=== PATIENT | female | born 1990 | race American Indian/Alaskan Native ===

== ENCOUNTER 2020-06-02 14:57 | Emergency (ER) | payer MEDICAID ==
[2020-06-02 15:31] VITALS: BP 126/78
--- NOTE | 2020-06-02 16:33 | Event Note ---
ED Screening Note ED Screening Note: 8 weeks +vaginal bleeding with clots states she is changing every 3 hours OB: my mobile architect mild cramping no fever no v/d no dysuria PMHx none no allergies to meds LNMP: early april /P:6/A:1 This initial assessment/diagnostic orders/clinical plan/treatment(s) is/are subject to change based on patients health status, clinical progression and re- assessment by fellow clinical providers in the ED. Further treatment and workup at subsequent clinical providers discretion. Patient/guardian urged not to elope from the ED as their condition may be serious if not clinically assessed and managed. Initial orders include: labs, UA, US
[2020-06-02 17:34] LABS: Basophils % (Auto) 0.2 % (0.0-1.8); Eosinophils # (Auto) 0.1 K/mm3 (0.0-0.4); Eosinophils % (Auto) 1.3 % (0.0-4.3); Hematocrit 39.7 % (30.3-42.9); Hemoglobin 12.9 gm/dl (10.1-14.3); Lymphocytes # (Auto) 1.8 K/mm3 (1.2-5.4); Lymphocytes % (Auto) 25.5 % (13.4-35.0); Mean Corpuscular HGB Conc 33 % (30-34); Mean Corpuscular Volume 87 fl (79-97); Monocytes # (Auto) 0.5 K/mm3 (0.0-0.8); Monocytes % (Auto) 6.6 % (0.0-7.3); Platelet Count 203 K/mm3 (140-440); Red Blood Count 4.55 M/mm3 (3.65-5.03); Red Cell Distribution Width 14.3 % (13.2-15.2)
[2020-06-02 17:40] LABS: Blood Urea Nitrogen 6 mg/dL (7-17); Calcium 9.5 mg/dL (8.4-10.2); Hemolysis Index 4
[2020-06-02 17:41] LABS: BUN/Creatinine Ratio 10
[2020-06-02 18:49] LABS: Bilirubin,Urine NEG (Negative); Blood,Urine LG (Negative); Color,Urine Yellow (Yellow); Mucus,Urine FEW /HPF; Protein,Urine <15 mg/dL mg/dL (Negative)
--- NOTE | 2020-06-02 19:16 | Ultrasound Report ---
ULTRASOUND OBSTETRIC INDICATION / CLINICAL INFORMATION: , bleeding. TECHNIQUE: Transabdominal. COMPARISON: None available. FINDINGS: Thickened endometrial stripe measuring 1.5 cm containing small amount of fluid/blood in cervix Gestational sac: None visualized EMBRYO/FETUS: None visualized ADNEXA: Right ovary within normal limits. 1.3 cm left ovarian follicular cyst FREE FLUID: None. ADDITIONAL FINDINGS: None. IMPRESSION: 1. No IUP. 2. Thickened heterogeneous endometrial stripe with fluid/blood in cervical canal likely secondary to recent miscarriage Signer Name: David Welch MD Signed: 06/02/2020 7:11 PM Workstation Name: [id number]
--- NOTE | 2020-06-02 19:40 | Emergency Department Report ---
ED HPI - General Chief complaint: Vaginal Bleeding Stated complaint: 8 WEEKS 1 DAY MISCARRYING Time Seen by Provider: 06/02/20 16:30 Source: patient Mode of arrival: Ambulatory Limitations: No Limitations - History of Present Illness Initial comments: pt is a 29 yo female who presents to the ED stating she is 8 weeks and having vaginal bleeding with clots. states she is changing every 3 hours. she states she did pass one large clot. she states the bleeding has improved significantly. OB: my obstetrical tech (+) mild lower cramping no fever no v/d no dysuria no abd vaginal discharge no back pain PMHx none no allergies to meds LNMP 04/06/2020 /P:6/A:1 - Related Data Previous Rx's Medication Instructions Recorded Last Taken Type Acetaminophen [Non-Aspirin Extra 1,000 mg PO Q6H PRN #30 tablet 01/17/20 Unknown Rx Strength] Ondansetron [Zofran Odt] 4 mg PO Q8HR PRN #12 tab.rapdis 01/17/20 Unknown Rx Allergies Allergy/AdvReac Type Severity Reaction Status Date / Time No Known Allergies Allergy Verified 06/02/20 15:29 ED Review of Systems ROS: Stated complaint: 8 WEEKS 1 DAY MISCARRYING Other details as noted in HPI ED Past Medical Hx - Past Medical History Previous Medical History?: No - Surgical History Past Surgical History?: Yes Additional Surgical History: HIP SURGERY - Social History Smoking Status: Never Smoker Substance Use Type: None - Medications Home Medications: Home Medications Medication Instructions Recorded Confirmed Last Taken Type Acetaminophen [Non-Aspirin Extra 1,000 mg PO Q6H PRN #30 tablet 01/17/20 Unknown Rx Strength] Ondansetron [Zofran Odt] 4 mg PO Q8HR PRN #12 tab.rapdis 01/17/20 Unknown Rx ED Physical Exam - General Limitations: No Limitations ED Course Vital Signs 06/02/20 15:30 Temperature 98.0 F Pulse Rate 81 Respiratory 16 Rate Blood Pressure 126/78 O2 Sat by Pulse 99 Oximetry ED Medical Decision Making - Lab Data Result diagrams: 06/02/20 17:07 06/02/20 17:07 Lab Results 06/02/20 06/02/20 06/02/20 Range/Units 17:07 17:07 17:07 WBC 7.2 (4.5-11.0) K/mm3 RBC 4.55 (3.65-5.03) M/mm3 Hgb 12.9 (10.1-14.3) gm/dl Hct 39.7 (30.3-42.9) % MCV 87 (79-97) fl MCH 28 (28-32) pg MCHC 33 (30-34) % RDW 14.3 (13.2-15.2) % Plt Count 203 (140-440) K/mm3 Lymph % (Auto) 25.5 (13.4-35.0) % Greenlee % (Auto) 6.6 (0.0-7.3) % Eos % (Auto) 1.3 (0.0-4.3) % Baso % (Auto) 0.2 (0.0-1.8) % Lymph # (Auto) 1.8 (1.2-5.4) K/mm3 Greenlee # (Auto) 0.5 (0.0-0.8) K/mm3 Eos # (Auto) 0.1 (0.0-0.4) K/mm3 Baso # (Auto) 0.0 (0.0-0.1) K/mm3 Seg Neutrophils % 66.4 (40.0-70.0) % Seg Neutrophils # 4.8 (1.8-7.7) K/mm3 Sodium 137 (137-145) mmol/L Potassium 4.1 (3.6-5.0) mmol/L Chloride 102.4 (98-107) mmol/L Carbon Dioxide 24 (22-30) mmol/L Anion Gap 15 mmol/L BUN 6 L (7-17) mg/dL Creatinine 0.6 (0.6-1.2) mg/dL Estimated GFR > 60 ml/min BUN/Creatinine Ratio 10 % Glucose 85 (65-100) mg/dL Calcium 9.5 (8.4-10.2) mg/dL HCG, Quant 861.2 H (0-4) mIU/mL Urine Color (Yellow) Urine Turbidity (Clear) Urine pH (5.0-7.0) Ur Specific Itmann (1.003-1.030) Urine Protein (Negative) mg/dL Urine Glucose (UA) (Negative) mg/dL Urine Ketones (Negative) mg/dL Urine Blood (Negative) Urine Nitrite (Negative) Urine Bilirubin (Negative) Urine Urobilinogen (<2.0) mg/dL Ur Leukocyte Esterase (Negative) Urine WBC (Auto) (0.0-6.0) /HPF Urine RBC (Auto) (0.0-6.0) /HPF U Epithel Cells (Auto) (0-13.0) /HPF Urine Mucus /HPF Blood Type 06/02/20 06/02/20 Range/Units 17:07 18:26 WBC (4.5-11.0) K/mm3 RBC (3.65-5.03) M/mm3 Hgb (10.1-14.3) gm/dl Hct (30.3-42.9) % MCV (79-97) fl MCH (28-32) pg MCHC (30-34) % RDW (13.2-15.2) % Plt Count (140-440) K/mm3 Lymph % (Auto) (13.4-35.0) % Greenlee % (Auto) (0.0-7.3) % Eos % (Auto) (0.0-4.3) % Baso % (Auto) (0.0-1.8) % Lymph # (Auto) (1.2-5.4) K/mm3 Greenlee # (Auto) (0.0-0.8) K/mm3 Eos # (Auto) (0.0-0.4) K/mm3 Baso # (Auto) (0.0-0.1) K/mm3 Seg Neutrophils % (40.0-70.0) % Seg Neutrophils # (1.8-7.7) K/mm3 Sodium (137-145) mmol/L Potassium (3.6-5.0) mmol/L Chloride (98-107) mmol/L Carbon Dioxide (22-30) mmol/L Anion Gap mmol/L BUN (7-17) mg/dL Creatinine (0.6-1.2) mg/dL Estimated GFR ml/min BUN/Creatinine Ratio % Glucose (65-100) mg/dL Calcium (8.4-10.2) mg/dL HCG, Quant (0-4) mIU/mL Urine Color Yellow (Yellow) Urine Turbidity Clear (Clear) Urine pH 5.0 (5.0-7.0) Ur Specific Itmann 1.021 (1.003-1.030) Urine Protein <15 mg/dl (Negative) mg/dL Urine Glucose (UA) Neg (Negative) mg/dL Urine Ketones Neg (Negative) mg/dL Urine Blood Lg (Negative) Urine Nitrite Neg (Negative) Urine Bilirubin Neg (Negative) Urine Urobilinogen 4.0 (<2.0) mg/dL Ur Leukocyte Esterase Neg (Negative) Urine WBC (Auto) 4.0 (0.0-6.0) /HPF Urine RBC (Auto) 111.0 (0.0-6.0) /HPF U Epithel Cells (Auto) 2.0 (0-13.0) /HPF Urine Mucus Few /HPF Blood Type A POSITIVE - Radiology Data Radiology results: report reviewed [facility] [address] [id number] Ultrasound Report Signed Patient: DONAL MILLER MR#: [id number] : 1990 Acct:[id number] Age/Sex: 29 / F ADM Date: 06/02/20 Loc: ED Attending Dr: Ordering Physician: ESVIN MCWILLIAMS Date of Service: 06/02/20 Procedure(s): US OB transvaginal Accession Number(s): [id number] cc: ESVIN MCWILLIAMS ULTRASOUND OBSTETRIC INDICATION / CLINICAL INFORMATION: , bleeding. TECHNIQUE: Transabdominal. COMPARISON: None available. FINDINGS: Thickened endometrial stripe measuring 1.5 cm containing small amount of fluid/blood in cervix Gestational sac: None visualized EMBRYO/FETUS: None visualized ADNEXA: Right ovary within normal limits. 1.3 cm left ovarian follicular cyst FREE FLUID: None. ADDITIONAL FINDINGS: None. IMPRESSION: 1. No IUP. 2. Thickened heterogeneous endometrial stripe with fluid/blood in cervical canal likely secondary to recent miscarriage Signer Name: David Welch MD Signed: 06/02/2020 7:11 PM Workstation Name: [id number] Transcribed By: TL Dictated By: David Welch MD Electronically Authenticated By: David Welch MD Signed Date/Time: 06/02/201910 DD/ 08 TD/TT: - Medical Decision Making pt is a 29 yo female who presents to the ED stating she is 8 weeks and having vaginal bleeding with clots. states she is changing every 3 hours. she states she did pass one large clot. she states the bleeding has improved significantly. OB: my obstetrical tech (+) mild lower cramping no fever no v/d no dysuria no abd vaginal discharge no back pain PMHx none no allergies to meds LNMP 04/06/2020 /P:6/A:1 Vitals are normal. No abdominal tenderness on exam, no guarding, rebound, rigidity, normal bowel sounds, no peritoneal signs. Labs are stable. hCG quant is 861. Patient is Rh+. OB ultrasound: 1. No IUP. 2. Thickened heterogeneous endometrial stripe with fluid/blood in cervical canal likely secondary to recent miscarriage. Discussed all results with patient and answered questions. Advised patient that this appears most likely consistent with a spontaneous . advised pt May take Tylenol as needed for discomfort. Increase your water intake. Please follow-up with your FIELD ACCOUNT DIRECTOR in the next 2 to 3 days. You need to have a repeat hCG quant in 2 days. Today 06/02/2020 your hCG quant is 861. Return to emergency room for any new or worsening symptoms. Critical care attestation.: If time is entered above; I have spent that time in minutes in the direct care of this critically ill patient, excluding procedure time. ED Disposition Clinical Impression: Spontaneous Disposition: DC-01 TO HOME OR SELFCARE Is pt being admited?: No Does the pt Need Aspirin: No Condition: Stable Instructions: Miscarriage, [id number] Additional Instructions: May take Tylenol as needed for discomfort. Increase your water intake. Please follow-up with your FIELD ACCOUNT DIRECTOR in the next 2 to 3 days. You need to have a repeat hCG quant in 2 days. Today 06/02/2020 your hCG quant is 861. Return to emergency room for any new or worsening symptoms. Referrals: PRIMARY CARE, [Primary Care Provider] - 2-3 Days [facility] [Provider Group] - 2-3 Days Forms: Accompanied Note Time of Disposition: 19:39 Print Language: KAZAKH
== END 2020-06-02 19:45 | disposition home or self-care (01) ==
LOC: ED 14:57
DX: O03.9 Complete or unspecified spontaneous abortion without complication (principal); Z3A.08 8 weeks gestation of pregnancy; Z79.899 Other long term (current) drug therapy
CPT/HCPCS: 36415; 76801; 76817; 80048; 81001; 84702; 85025; 86900; 86901

== ENCOUNTER 2021-03-16 10:54 | Inpatient (IN) | payer MEDICAID ==
[~2021-03-16 10:54] MED LIST: SODIUM CHLORIDE 0.9% IRR 1,500 ML BOTTLE IR ONE; WATER FOR IRRIG STERILE 1,500 ML BOTTLE IR ONE; ceFAZolin/STERILE WATER 2 GM/20 ML SYRINGE IV ONE
[2021-03-16] MEDS ORDERED: LACTATED RINGERS 500 ML IV ONE (13:00)
--- NOTE | 2021-03-16 14:13 | Ultrasound Report ---
ULTRASOUND OBSTETRIC LIMITED ULTRASOUND BIOPHYSICAL PROFILE INDICATION / CLINICAL INFORMATION: [facility], Twin gestation. Baby A Clinical Gestational Age (GA) in weeks, days: 32 weeks 6 days TECHNIQUE: Transabdominal. COMPARISON: None available. FINDINGS: BREATHING MOVEMENT = 0 GROSS BODY MOVEMENT = 2 TONE = 2 QUALITATIVE AMNIOTIC FLUID VOLUME = 2 TOTAL BIOPHYSICAL SCORE = 6/8 HEART RATE (beats per minute): 138 PRESENTATION: Breech. ADDITIONAL FINDINGS: None. IMPRESSION: 1. Biophysical Score = 6/8 Signer Name: Atul Monk MD Signed: 03/16/2021 2:08 PM Workstation Name: [employer]
--- NOTE | 2021-03-16 14:15 | Ultrasound Report ---
ULTRASOUND OBSTETRIC LIMITED ULTRASOUND BIOPHYSICAL PROFILE INDICATION / CLINICAL INFORMATION: [facility] TWINS. Baby B Clinical Gestational Age (GA) in weeks, days: 32 weeks 6 days TECHNIQUE: Transabdominal. COMPARISON: None available. FINDINGS: BREATHING MOVEMENT = 2 GROSS BODY MOVEMENT = 2 TONE = 2 QUALITATIVE AMNIOTIC FLUID VOLUME = 2 TOTAL BIOPHYSICAL SCORE = 8/8 HEART RATE (beats per minute): 150 ADDITIONAL FINDINGS: None. IMPRESSION: 1. Biophysical Score = 8/8 Signer Name: Atul Monk MD Signed: 03/16/2021 2:10 PM Workstation Name: [email or web address]
[2021-03-16] MEDS ORDERED: TERBUTALINE 1 MG/1 ML INJ SUB-Q ONE ×2 (14:51→17:20)
[2021-03-16] MEDS ORDERED: LACTATED RINGERS 1,000 ML ONE (15:54)
[2021-03-16 16:50] LABS: Hematocrit 36.7 % (30.3-42.9); Hemoglobin 12.4 gm/dl (10.1-14.3); Mean Corpuscular HGB Conc 34 % (30-34); Mean Corpuscular Volume 87 fl (79-97); Platelet Count 147 K/mm3 (140-440); Red Blood Count 4.24 M/mm3 (3.65-5.03); Red Cell Distribution Width 13.4 % (13.2-15.2)
[2021-03-16] MEDS ORDERED: diphenhydrAMINE 25 MG CAP PO PRN (17:34)
[2021-03-16] MEDS ORDERED: ALUM-MAG HYDROXIDE-SIMETHICONE 200-200-20MG/5ML ORAL LIQD 30 ML PO PRN (17:34)
[2021-03-16] MEDS ORDERED: ONDANSETRON 4 MG/2 ML INJ IV PRN (17:34)
[2021-03-16] MEDS ORDERED: DOCUSATE SODIUM 100 MG CAP PO PRN (17:34)
[2021-03-16] MEDS ORDERED: MAGNESIUM HYDROXIDE (MOM) ORAL LIQD UDC PO PRN (17:34)
[2021-03-16] MEDS ORDERED: ACETAMINOPHEN 325 MG TAB PO PRN (17:34)
[2021-03-16] MEDS ORDERED: LACTATED RINGERS 1,000 ML IV SCH (17:45)
--- NOTE | 2021-03-16 17:45 | History and Physical Report ---
History of Present Illness Date of examination: 03/16/21 Date of admission: 03/16/2021 Chief complaint: Abnormal testing. History of present illness: Pt is a 30 y.o. that presented to her office visit. Her NST in the office was non reactive and also had some difficulty with tracing unable baby B. She was sent to triage for an evaluation. Upon admission to triage a BPP was obtained and found to be 6/8 for Twin A. Pt was then admitted to observation with repeat BPP in the AM on 03/17/2021. EDC Confirmation: 05/05/2021 Gestational Age: 32.6 weeks on admission Past History : 9 Term Births: 3 Premature Births: 3 Living Children: 6 Para: 6 Mult. Births: 0 Prev : 0 Prev. attempt? none Aborta: 2 Elect. Ab: 0 Spont. Ab: 2 Ectopics: 0 # 1 Delivery date: 12/10/2008 Weeks Gestation: 39 labor: no Delivery type: Anesthesia type: epidural Delivery location: [place] Sex: Male weight: 6#14 Name: Leighton # 2 Delivery date: 09/30/2010 Weeks Gestation: 38 Delivery type: Anesthesia type: epidural Delivery location: [place] [facility] Sex: Male weight: 7#1 Name: Izabel # 3 Delivery date: 09/22/2012 Weeks Gestation: 36 labor: yes Delivery type: Anesthesia type: epidural Delivery location: [place] Sex: Female weight: 6#6 Name: Navya # 4 Delivery date: 11/26/2014 Weeks Gestation: 35.3 labor: yes Delivery type: Anesthesia type: epidural Delivery location: [place] [facility] Sex: Female weight: 5#0 Name: Janusz # 5 Delivery date: 02/08/2016 Weeks Gestation: 36 Delivery type: Anesthesia type: epidural Delivery location: [place] [facility] Sex: Male weight: 6#5 Name: Vinicio # 6 Delivery date: 12/02/2017 Weeks Gestation: 39.6 labor: no Delivery type: Hours of labor: 2 Anesthesia type: epidural Delivery location: [place] Sex: Female weight: 6#13 Name: Rocio # 7 Delivery date: 01/2020 Delivery type: SAB # 8 Delivery date: 05/2020 Weeks Gestation: 8 Delivery type: SAB Risk Factors: Smoked Tobacco Use: Never smoker Smokeless Tobacco Use: Never Alcohol use: no Exercise: yes PAP Smear History: Date of Last PAP Smear: 05/11/2020 Results: Normal Past Medical History: Reviewed history from 01/19/2020 and no changes required: Abnormal Pap Smear 2017 colposcopy Anemia Bladder Infections Bipolar Disease- not takin any medication Blood Transfusion Depression- denies current symptoms or suicidal ideation Headaches(Migraines) Ovarian Cysts UTI's Recurrent Past Surgical History: Reviewed history from 05/11/2020 and no changes required: positive, femus ORIF Past Medical History Anesthesia Complications: negative Anemia: negative Autoimmune Disorder: negative Bleeding Disorder: negative Blood Transfusions: positive, 2016 following excessive bleeding from [facility] for 3 months Breast Disease: negative Diabetes: negative Heart Disease: negative Hypertension: negative Hepatitis/Liver Disease: negative Kidney Disease/UTI: negative Neurologic/Epilepsy/Migraines: negative Phlebitis/Varicosities: negative Psychiatric: positive, Bipolar depression Pulmonary Disease/Asthma: negative Thyroid Disease: negative Hospitalizations: negative Surgery (Non-vice president of news): positive, femus ORIF Abnormal PAP: positive MARIA G Exposure: negative Infertility: negative Uterine Anomaly: negative Uterine Surgery (not C/S): negative Other Gynecologic Problems: positive, PID 2016 Social Hx: Patient is Smoking History: Patient has never smoked. Genetic History Congenital Heart Defect: Mom: no Dad: unknown Pratibha Disease: Mom: no Dad: unknown Thalassemia Mom: no Dad: unknown Neural Tube Defect Mom: no Dad: unknown Down's Syndrome Mom: no Dad: unknown Giuseppe-Sachs Mom: no Dad: unknown Sickle Cell Disease/Trait Mom: no Dad: unknown Hemophilia Mom: no Dad: unknown Muscular Dystrophy Mom: no Dad: unknown Cystic Fibrosis Mom: no Dad: unknown Agustín Chorea Mom: no Dad: unknown Mental Retardation Mom: no Dad: unknown Fragile X Mom: no Dad: unknown Other Genetic/Chromosomal Disorder Mom: no Dad: unknown Child w/other defect Mom: no Dad: unknown Enviromental Exposures Xray Exposure: no Medication, drug, or alcohol use since LMP: no Chemical/Other Exposure: no Exposure to Cat Liter: no Hx of Parvovirus (Fifth Disease): no Occupational Exposure to Children: none Current Allergies: No known allergies Past History Past Medical History: seizure (Headaches), hematologic disorders (Anemia), other (Bi-polar, depression, frequent UTI's, bladder infections) Past Surgical History: other (ORIF, ) FREELANCE DIRECTOR History: abnormal PAP smear, other (Ovarian cysts, PID) Family/Genetic History: none Social history: no significant social history - Obstetrical History Expected Date of Delivery: 05/05/21 Actual Gestation: 32 Week(s) 6 Day(s) : 9 Para: 6 Hx # Term Pregnancies: 3 Number of Pregnancies: 3 Spontaneous Abortions: 2 Induced : 0 Number of Living Children: 6 Medications and Allergies Allergies Allergy/AdvReac Type Severity Reaction Status Date / Time No Known Allergies Allergy Verified 06/02/20 15:29 Home Medications Medication Instructions Recorded Confirmed Last Taken Type Acetaminophen [Non-Aspirin Extra 1,000 mg PO Q6H PRN #30 tablet 01/17/20 Unknown Rx Strength] Ondansetron [Zofran Odt] 4 mg PO Q8HR PRN #12 tab.rapdis 01/17/20 Unknown Rx Active Meds: Active Medications Acetaminophen (Acetaminophen 325 Mg Tab) 1,000 mg PO Q6H PRN PRN Reason: Pain MILD(1-3)/Fever >100.5/VIRAMONTES Al Hydrox/Mg Hydrox/Simethicone (Alum-Mag Hydroxide-Simethicone [phone]/5ml Oral Liqd 30 Ml) 30 ml PO Q6H PRN PRN Reason: Indigestion Diphenhydramine HCl (Diphenhydramine 25 Mg Cap) 25 mg PO Q6H PRN PRN Reason: Itching Docusate Sodium (Docusate Sodium 100 Mg Cap) 100 mg PO Q12H PRN PRN Reason: Constipation Lactated Ringer's (Lactated Ringers) 1,000 mls @ 125 mls/hr IV DIRECT DAX Magnesium Hydroxide (Magnesium Hydroxide (Mom) Oral Liqd Udc) 30 ml PO QHS PRN PRN Reason: Laxative Effect Multivitamins/Iron/Calcium ( Kiv05-Ou Fumarate-Folic Acid Vit Tab) 1 each PO QDAY DAX Ondansetron HCl (Ondansetron 4 Mg/2 Ml Inj) 4 mg IV Q6H PRN PRN Reason: Nausea And Vomiting Review of Systems All systems: negative - Vital Signs Vital signs: Vital Signs Pulse Pulse Ox 55 L 80 L 03/16/21 12:17 10/06/21 12:17 Temp Pulse Resp BP Pulse Ox 98.5 F 101 H 110/56 99 03/16/21 12:39 03/16/21 17:37 03/16/21 15:40 03/16/21 17:37 Pt denies vaginal bleeding, LOF. Having some contractions. Was given fluids and terb in triage. - Physical Exam Breasts: Positive: deferred Cardiovascular: Regular rate Lungs: Positive: Normal air movement Abdomen: Positive: normal appearance, soft Genitourinary (Female): Positive: normal external genitalia, normal perenium Vulva: both: normal Uterus: Positive: normal size (For twin gestation. ) Extremities: Positive: normal - Obstetrical FHR: category 1 (X 2 while in triage) Cervical Dilatation: 0.5 Cervical Effacement Percentage: 20 station: -4 Uterine Contraction Pattern: Irregular Uterine Tone Measurement Phase: Resting Uterine Contraction Intensity: Mild Results Result Diagrams: 03/16/21 16:15 All other labs normal. GBS Unknown as patient is on 32.6 weeks gestation. HBsAg Screen Negative Negative *1 RPR Non Reactive Non Reactive *2 Rubella Antibodies, IgG 1.35 index Immune >0.99 *3 Non-immune <0.90 Equivocal 0.90 - 0.99 Immune >0.99 ABO Grouping A *4 Rh Factor Positive *5 Antibody Screen Negative Negative *6 Tests: (2) HB Solu + Rflx [facility] ([id number]) Hemoglobin (Hgb) Solubility Negative Negative *31 Tests: (3) HIV Ag/Ab with Reflex ([id number]) HIV Screen 4th Generation wRfx Non Reactive Non Reactive *32 Tests: (4) HCV Ab w/Rflx to Verification ([id number]) ! HCV Ab <0.1 s/co ratio 0.0-0.9 *33 Tests: (5) Comment: ([id number]) ! Comment: SPR[facility] *34 Non reactive HCV antibody screen is consistent with no HCV infection, unless recent infection is suspected or other evidence exists to indicate HCV infection. Assessment and Plan A: 30 y.o. @ 32.6 weeks, twin gestation. Abnormal testing Twin A BPP 6/8-off for breathing. - Patient Problems (1) Abnormal test Onset Date: ~03/16/21 Current Visit: Yes Status: Acute Plan to address problem: Admit to labor and delivery. Initiate IV. Drawn admission labs. Repeat BPP's on 03/17. (2) with 32 completed weeks gestation Current Visit: Yes Status: Acute Plan to address problem: Monitor twin gestation status through EFM. (3) Twin gestation in third trimester Current Visit: Yes Status: Acute Qualifiers: Multiple gestation type: dichorionic and diamniotic Qualified Code(s): O30.043 - Twin , dichorionic/diamniotic, third trimester Plan to address problem: Continuous EFM.
[2021-03-16] MEDS ORDERED: TERBUTALINE 1 MG/1 ML INJ IVP ONE (17:47)
[2021-03-16] MEDS ORDERED: METOCLOPRAMIDE 10 MG/2 ML INJ ONE (23:18)
[2021-03-16] MEDS ORDERED: OXYTOCIN DRIP 30,000 MILLIUNITS/500 ML BAG IV ONE ×2 (23:18→23:39)
[2021-03-16] MEDS ORDERED: BICITRA ORAL LIQD 30ML ONE (23:18)
[2021-03-16] MEDS ORDERED: FAMOTIDINE 20 MG/2 ML INJ IV ONE (23:18)
[2021-03-16] MEDS ORDERED: ceFAZolin/Water 2 GM/20 ML 2 GM/20 ML SYRINGE IV ONE (23:19)
[2021-03-16] MEDS ORDERED: BICITRA ORAL LIQD 30ML PO ONE (23:36)
--- NOTE | 2021-03-16 23:36 | Anesthesia Day of Surgery ---
Anesthesia Day of Surgery - Day of Surgery Patient Examined: Yes Patient H&P Reviewed: Yes Patient is NPO: Yes
--- NOTE | 2021-03-16 23:36 | Anesthesia Consultation ---
Anesthesia Consult and Med Hx Date of service: 03/16/21 - Airway Anesthetic Teeth Evaluation: Good ROM Head & Neck: Adequate Mental/Hyoid Distance: Adequate Mallampati Class: Class II Intubation Access Assessment: Probably Good - Pulmonary Exam CTA: Yes - Cardiac Exam Cardiac Exam: RRR - Pre-Operative Health Status ASA Pre-Surgery Classification: ASA3 Proposed Anesthetic Plan: Spinal - Pulmonary Hx Asthma: No - Cardiovascular System Hx Hypertension: No - Central Nervous System Hx Seizures: Yes Hx Psychiatric Problems: No - Endocrine Hx Renal Disease: No Hx Hypothyroidism: No Hx Hyperthyroidism: No - Hematic Hx Anemia: Yes Hx Sickle Cell Disease: No - Other Systems Hx Alcohol Use: No Hx Obesity: Yes
[2021-03-16] MEDS ORDERED: METOCLOPRAMIDE 10 MG/2 ML INJ IV NR (23:45)
[2021-03-17] MEDS ORDERED: ceFAZolin/STERILE WATER 2 GM/20 ML SYRINGE IV NR
[2021-03-17] MEDS ORDERED: dexAMETHasone 20 MG/5 ML VIAL ONE (00:12)
[2021-03-17] MEDS ORDERED: LACTATED RINGERS 1,000 ML ONE (00:12)
[2021-03-17] MEDS ORDERED: PHENYLEPHRINE/NS 1,000 MCG/10 ML SYRINGE (OR USE) IV ONE (00:12)
[2021-03-17] MEDS ORDERED: BUPIVACAINE/PF (0.5%) 5 MG/1 ML 30 ML VIAL INFILTRATI ONE (00:12)
[2021-03-17] MEDS ORDERED: ONDANSETRON 4 MG/2 ML INJ ONE (00:12)
[2021-03-17] MEDS ORDERED: ceFAZolin 1 GM VIAL ONE (00:12)
[2021-03-17] MEDS ORDERED: KETOROLAC 30 MG/1 ML INJ ONE (00:14)
[2021-03-17] MEDS ORDERED: ePHEDrine SULFATE 50 MG/1 ML INJ ONE (00:45)
--- NOTE | 2021-03-17 00:50 | Operative Report ---
Operative Report Operative Report: Date of operation: 03/17/2021 Pre-operative diagnosis: 1. Intrauterine at 33 weeks gestational age 2. Twin gestation, diamniotic dichorionic 3. labor 4. BMI 37.8 kg/m 5. Breech presentation twin A Postoperative diagnosis: 1. Intrauterine at 33 weeks gestational age 2. Twin gestation, diamniotic dichorionic 3. labor 4. BMI 37.8 kg/m 5. Transverse presentation twin A, head to maternal left with back posterior 6. Possible placenta abruption Procedure name(s): Primary low transverse uterine incision Surgeon: Preeti Mcclure MD Electric Melt Operator: Kaitlin. Anesthesia: Spine QBL: 710 mL Urine output: 50 mL of clear urine out at the end of the procedure Fluids: 1 bowel mL Findings: Twin A: Liveborn male weight 4 Lbs. 2 oz. Apgars of 6 and 8 at one and 5 minutes. Nuchal cord x1 delivered over the body Twin B: Liveborn male infant weight 4 pounds 0 ounces Apgars 3 and 9 at 1 and 5 minutes Grossly normal uterus tubes and ovaries Indications: Pt is a 30 y.o. that presented to her office visit. Her NST in the office was non reactive and also had some difficulty with tracing Twin B. She was sent to triage for an evaluation. Upon admission to triage a BPP was obtained and found to be 6/8 for Twin A. Pt was then admitted to observation with repeat BPP in the AM on 03/17/2021. At her office visit her cervical exam was closed. During her observational labor and delivery patient complained of contractions. Cervical exam revealed her to be 4 cm. By ultrasound twin A was breech therefore the decision was made to proceed with delivery. Patient complained of urge to push the operating table she was checked and found to be 6 cm dilated. Procedure: Patient was taking to the operating room. Spinal anesthesia was placed. Patient was then prepped and draped in the usual sterile fashion Timeout was performed. Once an appropriate level of anesthesia was noted, a Pfannenstiel incision was made and extended the fascia which was incised and extended lateral direction. The overlying fascia was sharply dissected away from the underlying rectus muscles in the superior inferior direction. The midline was entered bluntly. Bladder blade was placed. Vesicouterine fold was incised with blunt dissection bladder flap was created. A transverse incision was made in the lower uterine segment and extended superolateral direction with finger fractionation. Clear fluid was noted. Infant was delivered from the cephalic position, rotated from transverse.nuchal cord x1 was noted that was released over the body. Spontaneous cry and excellent tone. Mouth and nose bulb suctioned. Cord was doubly clamped and cut was given to the resuscitation team present. Membranes were ruptured on twin B. Clear fluid was noted. Infant was delivered from cephalic position. Spontaneous cry and excellent tone. Mouth and nose were bulb suction. The was given to the resuscitation team present. Placentas were delivered, order was given to send placentas to pathology. Moderate amount of dark blood was noted at delivery of the placentas. The uterus was exteriorized and cleaned of any further placental tissue and products of conception. Uterine incision was approximated using 0 Vicryl in a running interlocking stitch followed by further suture of 0 Vicryl in imbricating fashion. When hemostasis was noted the uterus was allowed back in the pelvic cavity. Pelvis was irrigated with warm normal saline. Once hemostasis was noted the rectus muscles were approximated using 0 Vicryl interrupted simple stitches 3. Once hemostasis was noted the fascia was approximated using 0 Vicryl simple running stitch. The incision was irrigated with warm saline, once hemostasis as noted, the subcuticular adipose tissue was reapproximated using 3-0 Vicryl in a simple running fashion. Skin was approximated using 4-0 Vicryl on a Jonathon needle in a subcuticular manner. Counts were correct at the end of the procedure. Intraoperative x-ray was performed. On preliminary view no evidence of retained surgical instruments, needles or laparotomy sponges. Patient tolerated the procedure well, she was taken to recovery room in stable condition.
--- NOTE | 2021-03-17 01:46 | XRay Report ---
Abdomen single view INDICATION: Abdominal pain IMPRESSION: No radiopaque/metallic needle identified the visualized abdomen and pelvis. Diastases of the pubic symphysis and right SI joint noted. Signer Name: Troy Blanca MD Signed: 03/17/2021 1:42 AM Workstation Name: [id number]
[2021-03-17] MEDS ORDERED: MORPHINE 4 MG/1 ML INJ IV PRN (03:31)
[2021-03-17] MEDS ORDERED: WITCH HAZEL/ GLYCERIN PAD TP PRN (03:31)
[2021-03-17] MEDS ORDERED: SENNOSIDES 8.6 MG TAB PO PRN (03:31)
[2021-03-17] MEDS ORDERED: MORPHINE 2 MG/1 ML INJ IV PRN (03:31)
[2021-03-17] MEDS ORDERED: OXYTOCIN DRIP 30 UNITS/500 ML BAG IV SCH (03:31)
[2021-03-17] MEDS ORDERED: NALOXONE 0.4 MG/1 ML INJ IV PRN (03:31)
[2021-03-17] MEDS ORDERED: ONDANSETRON 4 MG/2 ML INJ IV PRN (03:31)
[2021-03-17] MEDS ORDERED: PROMETHAZINE 25 MG RECT SUPP PR PRN (03:31)
[2021-03-17] MEDS ORDERED: LANOLIN/ZINC/DIMETHICONE (LANSINOH) 7 GM TP PRN (03:31)
[2021-03-17] MEDS ORDERED: SIMETHICONE 80 MG CHEW TAB PO PRN (03:31)
[2021-03-17] MEDS ORDERED: traMADol 50 MG TAB PO PRN (03:31)
[2021-03-17] MEDS ORDERED: D5W/LACTATED RINGERS 1,000 ML IV SCH (03:31)
[2021-03-17] MEDS: ACETAMINOPHEN 500 MG TAB PO SCH ×3 (05:36→19:59)
--- NOTE | 2021-03-17 08:42 | Progress Note ---
Assessment and Plan 30yo female s/p sitting up in bed, no complaints. Dressing dry and intact, lochia scant, fundus firm and midline. VSSAF. H&H ordered for 1300. - Patient Problems (1) delivery delivered Current Visit: Yes Status: Acute Plan to address problem: continue postop pathway Advance diet and activity as tolerated Subjective - Subjective Date of service: 03/17/21 Principal diagnosis: postop day #1 <12hrs s/p c/s Patient reports: pain well controlled : in NICU Objective - Vital Signs Latest vital signs: Vital Signs Temp Pulse Resp BP BP Pulse Ox Pulse Ox 03/17/21 03:20 98.6 F 80 22 105/66 98 98 03/17/21 02:30 97.8 F 79 17 107/56 97 03/17/21 02:15 73 19 93/51 98 03/17/21 02:00 76 17 103/58 99 03/17/21 01:45 83 17 102/48 98 03/17/21 01:40 87 19 96/49 97 03/17/21 01:35 83 20 92/42 97 03/17/21 01:30 97.4 F L 90 19 102/47 96 03/16/21 23:34 96 H 129/71 03/16/21 23:14 98 H 96 03/16/21 23:09 96 H 99 03/16/21 23:04 101 H 100 03/16/21 22:59 103 H 98 03/16/21 22:54 107 H 98 03/16/21 22:49 114 H 100 03/16/21 22:47 103 H 94 03/16/21 22:44 97 H 97 03/16/21 22:39 103 H 96 03/16/21 22:34 102 H 97 03/16/21 22:31 98 H 91 03/16/21 22:29 110 H 97 03/16/21 22:24 98 H 100 03/16/21 22:19 102 H 99 03/16/21 22:02 113 H 96 03/16/21 22:00 99 H 94 03/16/21 21:57 103 H 96 03/16/21 21:52 108 H 98 03/16/21 21:47 111 H 98 03/16/21 21:42 97 H 97 03/16/21 21:37 100 H 97 03/16/21 21:32 104 H 98 03/16/21 21:27 104 H 98 03/16/21 21:22 103 H 98 03/16/21 21:17 105 H 99 03/16/21 21:12 100 H 96 03/16/21 21:07 102 H 99 03/16/21 21:02 107 H 97 03/16/21 20:57 105 H 99 03/16/21 20:55 99 03/16/21 20:54 98.7 F 03/16/21 20:53 102 H 94 03/16/21 20:52 104 H 92 03/16/21 20:47 104 H 98 03/16/21 20:42 104 H 99 03/16/21 20:37 97 H 118/63 98 03/16/21 20:32 110 H 100 03/16/21 20:27 104 H 99 03/16/21 20:22 106 H 98 03/16/21 20:17 108 H 98 03/16/21 20:12 103 H 99 03/16/21 20:07 105 H 99 03/16/21 20:02 106 H 99 03/16/21 19:57 99 H 97 03/16/21 19:52 111 H 98 03/16/21 19:47 120 H 98 03/16/21 19:42 125 H 98 03/16/21 19:37 119 H 98 03/16/21 19:32 111 H 97 03/16/21 19:27 109 H 97 03/16/21 19:22 107 H 99 03/16/21 19:17 99 H 98 03/16/21 19:16 107 H 92 03/16/21 19:12 106 H 98 03/16/21 19:07 108 H 98 03/16/21 19:02 114 H 97 03/16/21 18:57 107 H 100 03/16/21 18:52 114 H 98 03/16/21 18:47 118 H 98 03/16/21 18:42 111 H 98 03/16/21 18:37 111 H 98 03/16/21 18:32 106 H 98 03/16/21 18:28 98.2 F 118 H 16 120/74 98 03/16/21 18:27 119 H 99 03/16/21 18:22 116 H 120/74 100 03/16/21 18:04 119 H 99 03/16/21 17:59 119 H 100 03/16/21 17:47 106 H 98 03/16/21 17:45 110 H 87 03/16/21 17:42 101 H 99 03/16/21 17:37 101 H 99 03/16/21 17:32 100 H 99 03/16/21 17:27 97 H 99 03/16/21 17:22 91 H 98 03/16/21 17:17 91 H 97 03/16/21 17:12 104 H 99 03/16/21 17:07 103 H 100 03/16/21 17:02 105 H 100 03/16/21 17:00 112 H 81 L 03/16/21 16:57 91 H 100 03/16/21 16:52 98 H 100 03/16/21 16:47 97 H 100 03/16/21 16:42 91 H 100 03/16/21 16:37 99 H 100 03/16/21 16:32 98 H 99 03/16/21 16:27 93 H 99 03/16/21 16:22 93 H 99 03/16/21 16:17 90 97 03/16/21 16:12 92 H 98 03/16/21 16:07 96 H 98 03/16/21 16:02 88 97 03/16/21 15:57 92 H 97 03/16/21 15:52 92 H 99 03/16/21 15:47 97 H 98 03/16/21 15:42 99 H 97 03/16/21 15:40 90 110/56 03/16/21 15:37 98 H 98 03/16/21 15:32 96 H 99 03/16/21 15:27 93 H 99 03/16/21 15:26 100 H 115/65 03/16/21 15:22 92 H 100 03/16/21 15:17 95 H 98 03/16/21 15:12 105 H 98 03/16/21 15:09 94 H 103/59 03/16/21 15:07 93 H 99 03/16/21 15:02 98 H 98 03/16/21 14:57 96 H 98 03/16/21 14:54 95 H 113/57 03/16/21 14:52 96 H 98 03/16/21 14:47 93 H 99 03/16/21 14:42 102 H 98 03/16/21 14:39 92 H 114/59 03/16/21 14:37 93 H 100 03/16/21 14:32 107 H 98 03/16/21 14:27 120 H 99 03/16/21 14:24 117 H 116/58 03/16/21 14:22 113 H 98 03/16/21 14:19 97 H 93 03/16/21 14:17 117 H 97 03/16/21 14:12 97 H 104/62 97 03/16/21 14:07 99 H 98 03/16/21 14:02 84 98 03/16/21 14:00 108 H 94 03/16/21 13:57 89 98 03/16/21 13:52 102 H 98 03/16/21 13:50 109 H 91 03/16/21 13:47 94 H 98 03/16/21 13:42 96 H 99 03/16/21 13:37 100 H 96 03/16/21 13:32 89 97 03/16/21 13:27 91 H 97 03/16/21 13:24 90 112/68 03/16/21 13:22 95 H 98 03/16/21 13:17 93 H 98 03/16/21 13:12 105 H 99 03/16/21 13:09 100 H 107/63 03/16/21 13:07 100 H 98 03/16/21 13:02 96 H 96 03/16/21 12:57 100 H 98 03/16/21 12:54 97 H 101/61 03/16/21 12:52 90 98 03/16/21 12:47 98 H 97 03/16/21 12:42 110 H 96 03/16/21 12:40 134 H 98/62 03/16/21 12:39 98.5 F 03/16/21 12:37 119 H 98 03/16/21 12:32 120 H 97 03/16/21 12:27 120 H 99 03/16/21 12:22 115 H 98 03/16/21 12:20 111 H 117/70 03/16/21 12:17 115 H 99 Intake and Output 03/16/21 03/17/21 03/17/21 23:59 07:59 15:59 Intake Total 490 Output Total 150 Balance 340 Intake: IV 490 Right Hand 40 Output: Urine 150 Uretheral (De Guzman) 75 Other: # Voids Void 1 - Exam Breasts: Present: normal Lungs: Present: Normal air movement Abdomen: Present: normal appearance, soft Uterus: Present: normal, firm Extremities: Present: normal Incision: Present: normal, dressed
[2021-03-17] MEDS: KETOROLAC 30 MG/1 ML INJ IV SCH ×3 (08:55→22:04)
[2021-03-17] MEDS: PRENATAL VIT27-FE FUMARATE-FOLIC ACID VIT TAB PO SCH (08:57)
[2021-03-17] MEDS ORDERED: PRENATAL VIT27-FE FUMARATE-FOLIC ACID VIT TAB PO SCH (10:00)
[2021-03-17] MEDS ORDERED: oxyCODONE /ACETAMINOPHEN 5-325MG TAB ONE (12:07)
[2021-03-17] MEDS: oxyCODONE /ACETAMINOPHEN 5-325MG TAB PO PRN (12:13)
[2021-03-17 13:35] LABS: Hematocrit 32.1 % (30.3-42.9); Hemoglobin 10.9 gm/dl (10.1-14.3)
--- NOTE | 2021-03-17 16:02 | Post Anesthesia Evaluation ---
- Post Anesthesia Evaluation Patient Participated: Yes Airway Patent: Yes Stable Respiratory Function: Yes Nausea/Vomiting: No Temp > 96.8F: Yes Pain Manageable: Yes Adequeate Hydration: Yes Anesthesia Complications: No Block Receding Appropriately: Yes
[2021-03-17] MEDS ORDERED: FAMOTIDINE 20 MG/2 ML INJ IV ONE (23:38)
[2021-03-18] MEDS: oxyCODONE /ACETAMINOPHEN 5-325MG TAB PO PRN ×3 (00:06→18:24)
[2021-03-18] MEDS ORDERED: IBUPROFEN 600 MG TAB PO PRN (01:16)
[2021-03-18] MEDS ORDERED: TETANUS,DIPH,PERTUSS(ACELL) VACCINE 0.5 ML SYRINGE IM ONE (06:00)
--- NOTE | 2021-03-18 09:55 | Progress Note ---
Assessment and Plan A: 30 y.o. s/p primary d/t twin gestation , POD #1. P: Continue with care. Advance diet as tolerated. Encouraged ambulation. Anticipate discharge home in AM. Subjective - Subjective Date of service: 03/18/21 (Patient doing well.) Principal diagnosis: postop day #1, s/p primary , twin gestation Patient reports: appetite normal, voiding normally, pain well controlled, flatus, ambulating normally [place]: doing well, in NICU Objective - Vital Signs Latest vital signs: Vital Signs Temp Pulse Resp BP Pulse Ox Pulse Ox 03/18/21 09:35 98 03/18/21 08:17 98.0 F 70 18 104/62 99 03/18/21 00:11 98.3 F 57 L 16 106/63 91 03/17/21 20:00 97.8 F 79 16 113/61 99 03/17/21 19:50 98 03/17/21 18:41 100 03/17/21 17:05 98.0 F 78 16 101/59 98 03/17/21 16:26 100 03/17/21 14:00 100 03/17/21 12:10 100 03/17/21 11:43 97.7 F 74 16 106/56 96 03/17/21 10:46 100 Intake and Output 03/17/21 03/18/21 03/18/21 22:59 06:59 14:59 Intake Total 200 Output Total 200 Balance 0 Intake: Oral 200 Output: Urine 200 Void 200 Other: Total, Intake Amount 200 Total, Output Amount 200 # Voids Void 1 - Exam Breasts: Present: deferred Cardiovascular: Present: Regular rate Lungs: Present: Normal air movement Abdomen: Present: normal appearance, soft Vulva: both: normal Uterus: Present: normal, firm Extremities: Present: normal Incision: Present: normal, dry, intact, dressed
[2021-03-18] MEDS: PRENATAL VIT27-FE FUMARATE-FOLIC ACID VIT TAB PO SCH ×2 (14:58→16:58)
[2021-03-18] MEDS: IBUPROFEN 800 MG TAB PO PRN (15:04)
[2021-03-18] MEDS: KETOROLAC 30 MG/1 ML INJ IV SCH (16:57)
[2021-03-19] MEDS: oxyCODONE /ACETAMINOPHEN 5-325MG TAB PO PRN ×2 (00:24→06:10)
[2021-03-19] MEDS: IBUPROFEN 800 MG TAB PO PRN ×2 (03:08→11:20)
--- NOTE | 2021-03-19 08:02 | Discharge Summary ---
Providers - Providers Date of Admission: 03/17/21 00:00 Date of discharge: 03/19/21 (Strong desire to go home.) Attending physician: LORRAINE ZARAGOZA 03/17/21 03:31 Consult to Maxillofacial Pathology [CONS] Routine Reason For Exam: Primary care physician: LORRAINE ZARAGOZA Hospitalization Reason for admission: labor (Twins.) Delivery: Procedure: primary low transverse Episiotomy: none Laceration: none Incision: normal, dry, intact, other (No s/sx of infection and no drainge noted. ) Other procedures: none complications: none Discharge diagnosis: delivery baby: twins (Boys) Hospital course: S: Pt doing well. Ambulating, voiding, and passing flatus. BC: Undecided. O: VSS. H/H 10.9/32.1. Incision open to air, steri strips intact, no s/sx of infection or drainage noted. A: 30y.o. s/p primary , twins pre term. In good condition and can be discharged home. P: Discharge home with instructions. To schedule incision check in office in 1 week. Condition at discharge: Good Disposition: 01 HOME / SELF CARE / HOMELESS Plan - Discharge Medications Prescriptions: Docusate Sodium [Colace] 100 mg PO BID PRN #30 capsule PRN Reason: Constipation Lidocain2.5%/Prilocai2.5% [Emla] 5 gm TP ONCE #1 tube Ferrous Sulfate [Feosol 325 MG tab] 325 mg PO DAILY #90 tablet Ibuprofen [Motrin 800 MG tab] 800 mg PO TID PRN #30 tablet PRN Reason: Pain oxyCODONE /ACETAMINOPHEN [Percocet 5/325 mg] 1 - 2 tab PO Q4HR PRN #14 tablet PRN Reason: Pain - Provider Discharge Summary Activity: routine, no sex for 6 weeks, no heavy lifting 4 weeks, no strenuous exercise Diet: routine Instructions: routine Additional instructions: [] Smoking cessation referral if applicable(refer to patient education folder for contact #) [] Refer to [facility] Booklet Call your doctor immediately for: * Fever > 100.5 * Heavy vaginal bleeding ( >1 pad per hour) * Severe persistent headache * Shortness of breath * Reddened, hot, painful area to leg or breast * Drainage or odor from incision. * Keep incision clean and dry at all times and follow doctor's instructions regarding bathing/showering Congratulations on your baby boys! Please schedule your incision check in the office in 1 week. You have been prescribe EMLA cream for your sons circumcision. Please do not use this cream at home. When your sons are discharged from the hospital you will call our office and make a circumcision appointment. You will bring that cream with your for your sons circumcision. Should you have any questions or concerns, please do not hesitate to call the office at [phone]. - Follow up plan Follow up: LORRAINE ZARAGOZA MD [Primary Care Provider] - 7 Days
[2021-03-19 08:43] VITALS: BP 108/69
[2021-03-19] MEDS: PRENATAL VIT27-FE FUMARATE-FOLIC ACID VIT TAB PO SCH (11:20)
== END 2021-03-19 12:30 | disposition home or self-care (01) | DRG 765 ==
LOC: TRG 10:54 → APU 10:57 → TRG 17:34 → APU 17:34 → LD 18:33 → OBSVTOIN 03-17 → OB 03-17 03:29
PROVIDERS: ADMIT Obstetrics & Gynecology; ATTEND Obstetrics & Gynecology
PROC: 10D00Z1 Extraction of Products of Conception, Low, Open Approach (ICD-10-PCS; principal; 2021-03-17)
DX: O32.1XX1 Maternal care for breech presentation, fetus 1 (principal); O60.14X0 Preterm labor third trimester with preterm delivery third trimester, not applicable or unspecified; Z37.2 Twins, both liveborn; O30.043 Twin pregnancy, dichorionic/diamniotic, third trimester; O99.354 Diseases of the nervous system complicating childbirth; Z36.89 Encounter for other specified antenatal screening; Z3A.32 32 weeks gestation of pregnancy; Z20.822 Contact with and (suspected) exposure to COVID-19; G43.909 Migraine, unspecified, not intractable, without status migrainosus; O99.344 Other mental disorders complicating childbirth; F31.9 Bipolar disorder, unspecified
CPT/HCPCS: 36415; 74018; 76819; 85014; 85018; 85027; 86592; 86850; 86900; 86901; 88307; 99211; G0378; G0463; J0690; J1100; J1885; J2270; J2370; J2405; J2765; J3105; J3490; J7120; J7121; U0003

== ENCOUNTER 2021-11-16 15:43 | Emergency (ER) | payer SELFPAY ==
[2021-11-16 19:53] LABS: Basophils % (Auto) 0.4 % (0.0-1.8); Eosinophils # (Auto) 0.1 K/mm3 (0.0-0.4); Eosinophils % (Auto) 1.1 % (0.0-4.3); Hematocrit 41.1 % (30.3-42.9); Hemoglobin 12.9 gm/dl (10.1-14.3); Lymphocytes # (Auto) 2.4 K/mm3 (1.2-5.4); Lymphocytes % (Auto) 25.1 % (13.4-35.0); Mean Corpuscular HGB Conc 31 % (30-34); Mean Corpuscular Volume 84 fl (79-97); Monocytes # (Auto) 0.6 K/mm3 (0.0-0.8); Monocytes % (Auto) 6.1 % (0.0-7.3); Platelet Count 231 K/mm3 (140-440); Red Blood Count 4.87 M/mm3 (3.65-5.03); Red Cell Distribution Width 14.3 % (13.2-15.2)
[2021-11-16 19:58] LABS: Alanine Aminotransferase 17 units/L (7-56); Albumin 4.5 g/dL (3.9-5); BUN/Creatinine Ratio 10; Blood Urea Nitrogen 6 mg/dL (7-17); Calcium 9.4 mg/dL (8.4-10.2); Hemolysis Index 1
[2021-11-16 20:11] LABS: INR 0.87 (0.87-1.13)
[2021-11-16 20:12] LABS: Partial Thromboplastin Time 29.6 Sec. (24.2-36.6)
[2021-11-17] MEDS ORDERED: ACETAMINOPHEN 325 MG TAB PO ONE ×2 (00:04→02:25)
[2021-11-17] MEDS ORDERED: PANTOPRAZOLE 40 MG TAB PO ONE ×2 (00:04→02:25)
--- NOTE | 2021-11-17 00:05 | Emergency Department Report ---
ED General Adult HPI - General Chief complaint: Chest Pain Stated complaint: Lower abdominal cramping, history of vaginal bleeding, chest wall pain Time Seen by Provider: 11/16/21 23:55 Source: patient, RN notes reviewed, old records reviewed Mode of arrival: Ambulatory Limitations: No Limitations - History of Present Illness Initial comments: The patient was evaluated in the emergency department for symptoms described in the history of present illness. He/she was evaluated in the context of the global COVID-19 pandemic, which necessitated consideration that the patient might be at risk for infection with the virus that causes COVID-19. Institut ional protocols and algorithms that pertain to the evaluation of patients at risk for COVID-19 are in a state of rapid change based on information released by regulatory bodies including the CDC and federal and state organizations. These policies and algorithms were followed during the patient's care in the emergency department. Please note that these policies, procedures and recommendations changed on a rapid basis. This is a 31-year-old female, who is 11, para 8, LMP October 16, denies s ignificant contributory past medical history, and denies personal/family history of CAD, DVT, PE, and ACS. The patient presents to the department today with complaint of anterior chest wall pain and left lateral breast pain, with associated trapezius pain, for the past week. She denies headache, midline neck pain, vomiting, diarrhea, urinary symptoms, travel, surgery, immobilization, DVT/PE risk factors. She also reports lower abdominal cramping, and vaginal spotting. Reports a positive home test. Denies dysuria. -: days(s) Location: neck, chest, abdomen Quality: aching Consistency: intermittent Improves with: rest Worsens with: other (Movement and palpation) - Related Data Previous Rx's Medication Instructions Recorded Last Taken Type Acetaminophen [Non-Aspirin Extra 1,000 mg PO Q6H PRN #30 tablet 01/17/20 Unknown Rx Strength] Docusate Sodium [Colace] 100 mg PO BID PRN #30 capsule 03/17/21 Unknown Rx Ferrous Sulfate [Feosol 325 MG tab] 325 mg PO DAILY #90 tablet 03/17/21 Unknown Rx Acetaminophen [Non-Aspirin Extra 500 mg PO Q6HR PRN #30 tablet 11/17/21 Unknown Rx Strength] Doxylamine Succinate/Vit B6 1 each PO QHS PRN #30 tablet. 11/17/21 Unknown Rx [Fabiana Hall 10-10 mg Tablet] Esha Root [Esha] 250 mg PO QID PRN #30 capsule 11/17/21 Unknown Rx Vit-Fe Fumar-FA [ 1 tab PO QDAY #30 tablet 11/17/21 Unknown Rx Vitamin] Allergies Allergy/AdvReac Type Severity Reaction Status Date / Time No Known Allergies Allergy Verified 03/19/21 06:17 ED Review of Systems ROS: Stated complaint: CHEST PAIN/ Other details as noted in HPI Constitutional: denies: fever Eyes: denies: eye discharge Respiratory: denies: cough, shortness of breath Cardiovascular: chest pain (Chest wall pain) Gastrointestinal: abdominal pain (Abdominal cramping). denies: nausea, vomiting Genitourinary: other (Vaginal spotting). denies: dysuria Musculoskeletal: myalgia Hematological/Lymphatic: denies: easy bleeding ED Past Medical Hx - Past Medical History Hx Hypertension: No Hx Diabetes: No Hx Deep Vein Thrombosis: No Hx Renal Disease: No Hx Sickle Cell Disease: No Hx Seizures: No Hx Asthma: No Hx HIV: No - Surgical History Additional Surgical History: HIP SURGERY - Social History Smoking Status: Never Smoker - Medications Home Medications: Home Medications Medication Instructions Recorded Confirmed Last Taken Type Acetaminophen [Non-Aspirin Extra 1,000 mg PO Q6H PRN #30 tablet 01/17/20 03/18/21 Unknown Rx Strength] Docusate Sodium [Colace] 100 mg PO BID PRN #30 capsule 03/17/21 Unknown Rx Ferrous Sulfate [Feosol 325 MG tab] 325 mg PO DAILY #90 tablet 03/17/21 Unknown Rx Acetaminophen [Non-Aspirin Extra 500 mg PO Q6HR PRN #30 tablet 11/17/21 Unknown Rx Strength] Doxylamine Succinate/Vit B6 1 each PO QHS PRN #30 tablet. 11/17/21 Unknown Rx [Fabiana Hall 10-10 mg Tablet] Esha Root [Esha] 250 mg PO QID PRN #30 capsule 11/17/21 Unknown Rx Vit-Fe Fumar-FA [ 1 tab PO QDAY #30 tablet 11/17/21 Unknown Rx Vitamin] ED Physical Exam - General Limitations: No Limitations General appearance: obese - Head Head exam: Present: atraumatic, normocephalic - Eye Eye exam: Present: normal appearance, EOMI. Absent: nystagmus - ENT ENT exam: Present: normal exam, normal orophraynx, mucous membranes moist, normal external ear exam - Neck Neck exam: Present: normal inspection, full ROM. Absent: tenderness, meningismus - Respiratory Respiratory exam: Present: normal lung sounds bilaterally, chest wall tenderness, other (Chaperoned by Rex Dhara Clark). Absent: respiratory distress, wheezes, rales, rhonchi, stridor - Cardiovascular Cardiovascular Exam: Present: regular rate, normal rhythm, normal heart sounds. Absent: bradycardia, tachycardia, irregular rhythm, systolic murmur, diastolic murmur, rubs, gallop - GI/Abdominal GI/Abdominal exam: Present: soft. Absent: distended, tenderness, guarding, rebound, rigid, pulsatile mass - Extremities Exam Extremities exam: Present: normal inspection, full ROM, other (2+ pulses noted in the bilateral upper and lower extremities. There is no palpable cord. negative Homans sign. Muscular compartments are soft. The pelvis is stable.). Absent: pedal edema, calf tenderness - Back Exam Back exam: Present: normal inspection, muscle spasm. Absent: tenderness, CVA tenderness (R), CVA tenderness (L), paraspinal tenderness, vertebral tenderness - Neurological Exam Neurological exam: Present: alert, oriented X3, normal gait, other (No facial droop. Tongue midline. Extraocular movements intact bilaterally. Facial sensation intact to light touch in V1, V2, V3 distribution bilaterally. 5 and a 5 strength in 4 extremities. Sensation intact to light touch in 4 extremities.). Absent: motor sensory deficit - Psychiatric Psychiatric exam: Present: normal affect, normal mood - Skin Skin exam: Present: warm, dry, intact, normal color. Absent: rash ED Course Vital Signs 11/16/21 11/17/21 11/17/21 18:43 02:28 02:31 Temperature 98.4 F 97.9 F Pulse Rate 97 H 106 H Respiratory 18 21 21 Rate Blood Pressure 137/90 Blood Pressure 118/84 [Left] O2 Sat by Pulse 100 99 99 Oximetry O2 Sat by Pulse Oximetry [ Digit-Finger] 11/17/21 02:33 Temperature Pulse Rate Respiratory Rate Blood Pressure Blood Pressure [Left] O2 Sat by Pulse Oximetry O2 Sat by Pulse 99 Oximetry [ Digit-Finger] - Reevaluation(s) Reevaluation #1: 11/17/21 00:54 Differential diagnosis, include but not limited to: Costochondritis, GERD, gastr itis, hiatal hernia, miscarriage, threatened miscarriage, ectopic , bacteriuria Assessment and plan: 31-year-old female with 2 complaints. Complaints #1, reproducible anterior chest wall pain for 1 week. EKG not consistent with STEMI. Troponin negative x1 in the context of days of symptoms. Acute myocardial infarction is ruled out. Patient at low risk for major adverse cardiac event as per heart score. She is not currently tachycardic, tachypneic or hypoxic, and I find her to be low risk by Wells criteria for pulmonary embolism. Treat with Tylenol, diet and lifestyle modifications, rest, ice, elevation, and supportive care. Complaints #2, lower abdominal cramping with history of vaginal spotting for 1 week. Positive test today. Urinalysis pending. Type and screen in the past is demonstrated the patient is Rh+ multiple times. Obtain obstetrics ultrasound. Reassess. Reevaluation #2: 11/17/21 00:56 There is no right lower quadrant tenderness, rebound or guarding. There is negative Hernández sign. There is a negative Rovsing sign 11/17/21 02:31 Reassessed. Ultrasound confirms intrauterine . Patient on cell phone and endorses resolution of symptoms. Urinalysis contaminated, but demonstrates no bacteriuria. Explained significance of all findings to the patient. She articulates understanding. All questions answered. Return precautions are reviewed. Reevaluation #3: 11/17/21 02:33 On final reassessment, resting heart rate 99 to 100 bpm. Likely physiology tachycardia of - Pulse Oximetry Interpretation Digit-Finger Initial Pulse Oximetry Readin O2 Sat by Pulse Oximetry: 99 Actions Taken: none ED Medical Decision Making - Lab Data Result diagrams: 11/16/21 19:06 11/16/21 19:06 Vital Signs 11/16/21 18:43 Temperature 98.4 F Pulse Rate 97 H Respiratory 18 Rate Blood Pressure 137/90 O2 Sat by Pulse 100 Oximetry Lab Results 11/16/21 11/16/21 11/16/21 Range/Units 19:06 19:06 19:06 WBC 9.4 (4.5-11.0) K/mm3 RBC 4.87 (3.65-5.03) M/mm3 Hgb 12.9 (10.1-14.3) gm/dl Hct 41.1 (30.3-42.9) % MCV 84 (79-97) fl MCH 27 L (28-32) pg MCHC 31 (30-34) % RDW 14.3 (13.2-15.2) % Plt Count 231 (140-440) K/mm3 Lymph % (Auto) 25.1 (13.4-35.0) % Simpson % (Auto) 6.1 (0.0-7.3) % Eos % (Auto) 1.1 (0.0-4.3) % Baso % (Auto) 0.4 (0.0-1.8) % Lymph # (Auto) 2.4 (1.2-5.4) K/mm3 Simpson # (Auto) 0.6 (0.0-0.8) K/mm3 Eos # (Auto) 0.1 (0.0-0.4) K/mm3 Baso # (Auto) 0.0 (0.0-0.1) K/mm3 Seg Neutrophils % 67.3 (40.0-70.0) % Seg Neutrophils # 6.3 (1.8-7.7) K/mm3 PT 12.7 (12.2-14.9) Sec. INR 0.87 (0.87-1.13) APTT 29.6 (24.2-36.6) Sec. Sodium 137 (137-145) mmol/L Potassium 3.9 (3.6-5.0) mmol/L Chloride 101.6 (98-107) mmol/L Carbon Dioxide 24 (22-30) mmol/L Anion Gap 15 mmol/L BUN 6 L (7-17) mg/dL Creatinine 0.6 (0.6-1.2) mg/dL Estimated GFR > 60 ml/min BUN/Creatinine Ratio 10 % Glucose 87 (65-100) mg/dL Calcium 9.4 (8.4-10.2) mg/dL Total Bilirubin 0.40 (0.1-1.2) mg/dL AST 13 (5-40) units/L ALT 17 (7-56) units/L Alkaline Phosphatase 55 (35-129) units/L Troponin T < 0.010 (0.00-0.029) ng/mL Total Protein 7.9 (6.3-8.2) g/dL Albumin 4.5 (3.9-5) g/dL Albumin/Globulin Ratio 1.3 % HCG, Quant (0-4) mIU/mL 11/17/21 Range/Units 00:00 WBC (4.5-11.0) K/mm3 RBC (3.65-5.03) M/mm3 Hgb (10.1-14.3) gm/dl Hct (30.3-42.9) % MCV (79-97) fl MCH (28-32) pg MCHC (30-34) % RDW (13.2-15.2) % Plt Count (140-440) K/mm3 Lymph % (Auto) (13.4-35.0) % Simpson % (Auto) (0.0-7.3) % Eos % (Auto) (0.0-4.3) % Baso % (Auto) (0.0-1.8) % Lymph # (Auto) (1.2-5.4) K/mm3 Simpson # (Auto) (0.0-0.8) K/mm3 Eos # (Auto) (0.0-0.4) K/mm3 Baso # (Auto) (0.0-0.1) K/mm3 Seg Neutrophils % (40.0-70.0) % Seg Neutrophils # (1.8-7.7) K/mm3 PT (12.2-14.9) Sec. INR (0.87-1.13) APTT (24.2-36.6) Sec. Sodium (137-145) mmol/L Potassium (3.6-5.0) mmol/L Chloride (98-107) mmol/L Carbon Dioxide (22-30) mmol/L Anion Gap mmol/L BUN (7-17) mg/dL Creatinine (0.6-1.2) mg/dL Estimated GFR ml/min BUN/Creatinine Ratio % Glucose (65-100) mg/dL Calcium (8.4-10.2) mg/dL Total Bilirubin (0.1-1.2) mg/dL AST (5-40) units/L ALT (7-56) units/L Alkaline Phosphatase (35-129) units/L Troponin T (0.00-0.029) ng/mL Total Protein (6.3-8.2) g/dL Albumin (3.9-5) g/dL Albumin/Globulin Ratio % HCG, Quant 1081 H (0-4) mIU/mL - EKG Data -: EKG Interpreted by Nd EKG shows normal: sinus rhythm Rate: normal - EKG Data 11/17/21 00:53 The EKG is interpreted at 19: 00 Sinus rhythm, motion artifact, 94 bpm. Normal axis, normal P wave axis, QTC 4 5 9 ms. Question juvenile T wave inversion V2. This is not a STEMI. - Radiology Data Radiology results: pending ULTRASOUND OBSTETRIC INDICATION / CLINICAL INFORMATION: lower abd cramping and + hcg. TECHNIQUE: Transabdominal and Transvaginal. COMPARISON: None available. FINDINGS: GESTATIONAL SAC: Well-defined oval shape and intrauterine in location. YOLK SAC: No significant abnormality. EMBRYO/FETUS: No significant abnormality. - [place]-Rump Length = 0.21 cm = 5 weeks, 5 day(s). - Heart Rate, beats per minute (if present) = 138 ADNEXA: No significant abnormality. FREE FLUID: None. ADDITIONAL FINDINGS: None. IMPRESSION: 1. Single, living intrauterine with estimated sonographic age of 5 weeks, 5 day(s). Signer Name: David Welch MD Signed: 11/17/2021 12:59 AM Workstation Name: [id number] Critical care attestation.: If time is entered above; I have spent that time in minutes in the direct care of this critically ill patient, excluding procedure time. ED Disposition Clinical Impression: Chest wall pain, Cramp, abdominal, BMI 37.0-37.9, adult Qualifiers: Weeks of gestation: less than 8 weeks Qualified Code(s): Z3A.01 - Less than 8 weeks gestation of Disposition: 01 HOME / SELF CARE / HOMELESS Is pt being admited?: No Does the pt Need Aspirin: No Condition: Good Instructions: Nonspecific Chest Pain, Adult Additional Instructions: We recommend that the patient exercise as tolerated, and lose weight aggressively. Wear supportive clothing, and supportive bra/brassiere. Alternate ice packs and heat packs as needed for physical pain, and may take Tylenol [id number] or as described as needed for physical pain. Avoid heavy lifting and strenuous physical activity, and do not have sex until cleared to do so by an outpatient [facility] physician. Avoid consumption of Motrin, ibuprofen, Naprosyn, Aleve, heavy and spicy foods, alcohol, tobacco and smoke products. Drink at least 4 cups of water per day, and consume fiber, v egetables, and lean protein. Patient may take an [id number] antacid such as famotidine or Pepcid if she so desires. Please take the vitamins as directed, and nausea medications as needed/directed. Please follow-up with an outpatient [facility] doctor soon as possible to initiate outpatient care. Please return to the emergency room right away with new pain, worsened pain, mi gration of pain, projectile vomiting, change in mental status, confusion, inability tolerate liquid feeds, new, worsened or different symptoms not present on the initial emergency room evaluation Prescriptions: Doxylamine Succinate/Vit B6 [Fabiana Hall 10-10 mg Tablet] 1 each PO QHS PRN #30 tablet. PRN Reason: Nausea Esha Root [Esha] 250 mg PO QID PRN #30 capsule PRN Reason: Nausea Acetaminophen [Non-Aspirin Extra Strength] 500 mg PO Q6HR PRN #30 tablet PRN Reason: Pain , Severe (7-10) Vit-Fe Fumar-FA [ Vitamin] 1 tab PO QDAY #30 tablet Referrals: [facility] [Provider Group] - 3-5 Days [facility] [Provider Group] - 3-5 Days [facility] [Provider Group] - 3-5 Days Forms: Work/School Release Form(ED)
[2021-11-17 00:54] LABS: Mucus,Urine 3+ /HPF
[2021-11-17 01:00] LABS: Bilirubin,Urine Small (Negative); Color,Urine Yellow (Yellow)
[2021-11-17 01:01] LABS: Blood,Urine NEG (Negative); PH,Urine 6.5 (5.0-7.0); Urobilinogen,Urine < 2.0 mg/dL (<2.0)
[2021-11-17 01:20] LABS: Ictotest,Urine Negative (Negative)
--- NOTE | 2021-11-17 02:04 | Ultrasound Report ---
ULTRASOUND OBSTETRIC INDICATION / CLINICAL INFORMATION: lower abd cramping and + hcg. TECHNIQUE: Transabdominal and Transvaginal. COMPARISON: None available. FINDINGS: GESTATIONAL SAC: Well-defined oval shape and intrauterine in location. YOLK SAC: No significant abnormality. EMBRYO/FETUS: No significant abnormality. - [place] [address]-Rump Length = 0.21 cm = 5 weeks, 5 day(s). - Heart Rate, beats per minute (if present) = 138 ADNEXA: No significant abnormality. FREE FLUID: None. ADDITIONAL FINDINGS: None. IMPRESSION: 1. Single, living intrauterine with estimated sonographic age of 5 weeks, 5 day(s). Signer Name: David Welch MD Signed: 11/17/2021 1:59 AM Workstation Name: [id number]
--- NOTE | 2021-11-17 02:04 | Ultrasound Report ---
ULTRASOUND OBSTETRIC INDICATION / CLINICAL INFORMATION: lower abd cramping and + hcg. TECHNIQUE: Transabdominal and Transvaginal. COMPARISON: None available. FINDINGS: GESTATIONAL SAC: Well-defined oval shape and intrauterine in location. YOLK SAC: No significant abnormality. EMBRYO/FETUS: No significant abnormality. - [place]-Rump Length = 0.21 cm = 5 weeks, 5 day(s). - Heart Rate, beats per minute (if present) = 138 ADNEXA: No significant abnormality. FREE FLUID: None. ADDITIONAL FINDINGS: None. IMPRESSION: 1. Single, living intrauterine with estimated sonographic age of 5 weeks, 5 day(s). Signer Name: David Welch MD Signed: 11/17/2021 1:59 AM Workstation Name: [id number]
[2021-11-17 02:48] VITALS: BP 114/60
--- NOTE | 2021-11-17 12:12 | Electrocardiograph Report ---
[facility] Test Date: 2021-11-16 Test Time: 19:00:45 Pat Name: DONAL MILLER Department: Room: Gender: F Educational Technician: [birth year] : 1990 Requested By: NAOMI HAQUE Order Number: [id number] Reading MD: Hever Fritz Measurements Intervals [place] Rate: 94 P: 89 ME: 195 QRS: 55 QRSD: 83 T: 24 QT: 366 QTc: 459 Interpretive Statements Sinus rhythm No previous ECG available for comparison Electronically Signed On 11-17-2021 12:12:32 EDT by Hever Fritz
== END 2021-11-17 02:50 | disposition home or self-care (01) ==
LOC: ED 15:43
DX: O26.891 Other specified pregnancy related conditions, first trimester (principal); Z3A.01 Less than 8 weeks gestation of pregnancy; R07.89 Other chest pain; R10.30 Lower abdominal pain, unspecified; Z98.890 Other specified postprocedural states
CPT/HCPCS: 36415; 76801; 76817; 80053; 81001; 84484; 84702; 85025; 85610; 85730; 93005; 99284